=== PATIENT | female | born 1990 | race Caucasian/White ===

== ENCOUNTER 2016-10-23 22:46 | Inpatient (IN) | payer OTHER ==
[~2016-10-23] VITALS: Ht 167.6 cm; Wt 65.9 kg
[~2016-10-23 22:46] MED LIST: PREN1TAB49 PO
[2016-10-23 22:54] VITALS: Ht 167.6 cm; Wt 65.9 kg
[2016-10-23 22:55] VITALS: BP 126/78; PULSE 98; RESP 18
[2016-10-23 23:57] LABS: ADD UMIC NO; UR ASCORBIC ACID NEGATIVE (NEGATIVE); UR BILIRUBIN (Dip) NEGATIVE (NEGATIVE); UR BLOOD (Dip) NEGATIVE (NEGATIVE); UR CLARITY CLEAR (CLEAR); UR COLOR STRAW (YELLOW); UR GLUCOSE (Dip) NEGATIVE (NEGATIVE); UR KETONES (Dip) NEGATIVE (NEGATIVE); UR LEUKOCYTE ESTERASE (Dip) NEGATIVE Leu/ul (NEGATIVE); UR NITRITE (Dip) NEGATIVE (NEGATIVE); UR SPECIFIC GRAVITY (Dip) 1.012 (1.003-1.030); UR TOTAL PROTEIN (Dip) NEGATIVE (NEGATIVE); UR UROBILINOGEN (Dip) NEGATIVE (NEGATIVE)
[2016-10-24] MEDS ORDERED: LACTATED RINGER'S 1,000 ML IV ONE (00:30)
[2016-10-24] MEDS ORDERED: LACTATED RINGER'S 1,000 ML IV SCH (01:19)
[2016-10-24] MEDS ORDERED: CEFAZOLIN 2 GM/50 ML (PMX) 50 ML IV SCH (01:30)
[2016-10-24] MEDS ORDERED: OXYTOCIN 30 UNITS/LR 500 ML IV PRN ×2 (01:30→08:00)
[2016-10-24] MEDS ORDERED: OXYTOCIN 30 UNITS/LR 500 ML IV SCH (01:30)
[2016-10-24] MEDS ORDERED: CARBOPROST 250 MCG INJ IM PRN ×2 (01:30→08:00)
[2016-10-24] MEDS ORDERED: MISOPROSTOL 200 MCG TAB PR PRN ×2 (01:30→08:00)
[2016-10-24] MEDS ORDERED: METHYLERGONOVINE 0.2 MG INJ IM PRN ×2 (01:30→08:00)
[2016-10-24 01:44] LABS: BASOPHIL # 0.1 10^3/ul (0.0-0.1); BASOPHILS % 0.7 % (0.0-2.0); EOSINOPHILS # 0.2 10^3/ul (0.0-0.5); EOSINOPHILS % 2.5 % (0.0-7.0); HEMATOCRIT 28.5 % (37.0-47.0); HEMOGLOBIN 8.9 g/dl (12.0-16.0); LYMPHOCYTES # 2.4 10^3/ul (0.8-2.9); LYMPHOCYTES % 31.2 % (15.0-51.0); MEAN CORPUSCULAR HEMOGLOBIN 23.5 pg (29.0-33.0); MEAN CORPUSCULAR HGB CONC 31.2 g/dl (32.0-37.0); MEAN CORPUSCULAR VOLUME 75.2 fl (82.0-101.0); MEAN PLATELET VOLUME 11.4 fl (7.4-10.4); MONOCYTE # 0.7 10^3/ul (0.3-0.9); MONOCYTES % 8.9 % (0.0-11.0); NEUTROPHILS % 56.3 % (39.0-77.0); NUCLEATED RED BLOOD CELLS% 0.4 /100WBC (0.0-0.0); PLATELET COUNT 283 10^3/UL (140-415); RED BLOOD COUNT 3.79 10^6/ul (4.20-5.40); RED CELL DISTRIBUTION WIDTH 15.2 % (11.5-14.5); WHITE BLOOD COUNT 7.6 10^3/ul (4.8-10.8)
[2016-10-24 02:05] LABS: INR 0.83; PROTIME 11.4 Sec (12.2-14.2); PT RATIO 0.9
[2016-10-24 02:48] LABS: CANNABINOIDS Negative (NEGATIVE)
[2016-10-24 02:51] LABS: BARBITURATES Negative (NEGATIVE); BENZODIAZEPINES Negative (NEGATIVE); COCAINE Negative (NEGATIVE); OPIATES Negative (NEGATIVE)
--- NOTE | 2016-10-24 03:08 | TRIAGE ---
OB Triage Datetime Report Generated by CPN: 10/24/2016 03:08 Datetime: 10/24/2016 02:51 Comments: Maternal HR confirmed with pulse oximeter. Datetime: 10/24/2016 02:00 Labor Evaluation Frequency: 4-8; irregular Monitor Mode: External Duration (sec)2399: 60-120 Quality: Moderate Pattern: Normal: <= 5 Contractions in 10 Minutes Resting Tone [place]: Relaxed Heart Rate FHR Baseline Rate: 135 Monitor Mode: External US FHR Baseline Changes: No Baseline Change Variability: Moderate 6-25 bpm Accelerations: 15X15 Decelerations: None Category: Category I Comments: Periods of loss of FHR contact d/t pt self repositioning. Datetime: 10/24/2016 01:50 Assessment Type: Admission Assessment Maternal Assessment Level of Consciousness: Fully Conscious DTR's/Clonus: DTRs 2+; No Clonus Headache: Denies Blurred Vision: No Respiratory Effort: Unlabored; Regular Rhythm; Equal Expansion Breath Sounds, Left: Clear and Equal Breath Sounds, Right: Clear and Equal Nausea/Vomiting: Denies RUQ Epigastric Pain: Denies Facial Edema: None Fall Risk Assessment History of Falling: (0) No Secondary Diagnosis: (0) No Ambulatory Aid: (0) Bedrest/Nurse Assist Gait: (0) Normal/Bedrest/Immobile Mental Status: (0) Oriented to Own Ability Datetime: 10/24/2016 01:45 Stage of : Labor Datetime: 10/24/2016 01:05 Time of Arrival: 10/24/2016 01:45 EGA: 38.5 Arrived By: Wheelchair Arrived From: OB TRIAGE Datetime: 10/24/2016 01:00 Labor Evaluation Frequency: 3-9 Monitor Mode: External Duration (sec)2399: 60-160 Quality: Moderate Pattern: Normal: <= 5 Contractions in 10 Minutes Resting Tone [place]: Relaxed Heart Rate FHR Baseline Rate: 135 Monitor Mode: External US FHR Baseline Changes: No Baseline Change Variability: Moderate 6-25 bpm Accelerations: 15X15 Decelerations: None Category: Category I Comments: Periods of loss of FHR contact d/t pt self repositioning Datetime: 10/24/2016 00:00 Labor Evaluation Frequency: 4-7 Monitor Mode: External Duration (sec)2399: 120-160 Quality: Moderate Pattern: Normal: <= 5 Contractions in 10 Minutes Resting Tone [place]: Relaxed Heart Rate FHR Baseline Rate: 135 Monitor Mode: External US FHR Baseline Changes: No Baseline Change Variability: Moderate 6-25 bpm Accelerations: 15X15 Decelerations: None Category: Category I Comments: Periods of loss of FHR contact d/t pt self repositioning Datetime: 10/23/2016 23:20 Labor Evaluation Frequency: x3 Monitor Mode: External Duration (sec)2399: 90-160 Quality: Moderate Resting Tone [place]: Relaxed Heart Rate FHR Baseline Rate: 135 Monitor Mode: External US FHR Baseline Changes: No Baseline Change Variability: Moderate 6-25 bpm Accelerations: 15X15 Decelerations: None Category: Category I Datetime: 10/23/2016 23:15 Vaginal Exam Dilatation (cms): 0.0 Effacement (%): 0 Station: -4 Exam By: MG Membrane Status: Intact Datetime: 10/23/2016 23:02 Assessment Type: Triage Maternal Assessment Level of Consciousness: Fully Conscious DTR's/Clonus: DTRs 2+; No Clonus Headache: Denies Blurred Vision: No Respiratory Effort: Unlabored; Regular Rhythm; Equal Expansion Breath Sounds, Left: Clear and Equal Breath Sounds, Right: Clear and Equal Nausea/Vomiting: Denies RUQ Epigastric Pain: Denies Lower Extremities Edema: Bilateral Lower Extremities Degree: 1+ Upper Extremities Edema: None Degree: None Facial Edema: None Fall Risk Assessment History of Falling: (0) No Secondary Diagnosis: (0) No Ambulatory Aid: (0) Bedrest/Nurse Assist IV Therapy: (0) No Gait: (0) Normal/Bedrest/Immobile Mental Status: (0) Oriented to Own Ability Fall Score: 0 Fall Risk Score Definition: No Risk: No action required Datetime: 10/23/2016 23:01 EGA: 38.4 Datetime: 10/23/2016 22:49 Resting Tone [place]: Relaxed Datetime: 10/23/2016 22:34 Time of Arrival: 10/23/2016 22:34 Arrived By: Ambulatory Arrived From: Emergency Dept Chief Complaint: UCs for 3 days, some mucous discharge Movement: Present Contractions: Regular Time Contractions Began: 10/20/2016 15:00 Contractions: [id number] Rupture of Membranes: Denies Vaginal Bleeding: None Vaginal Discharge: Present Recent Sexual Intercouse: Denies Abdominal Trauma: Not Applicable Patient Complaints: Contractions Additional Patient Complaints: Pt denies medical hx. Reports formerly homeless but not currently. Pt reports positive gonorrhea that was untreated; inconsistent care; current smoker and for sony marijuana use in early . NPO since 10/23 @ 2200 Time Provider Notified: 10/23/2016 23:03 Provider Notified: LABORIST MD LINDOADIAN Initial Plan: Observation, UA, VE, PO hydration x1 followed by NPO status
[2016-10-24] MEDS ORDERED: OXYTOCIN 10 UNIT INJ ONE (06:03)
[2016-10-24] MEDS ORDERED: FENTAnyl 50 MCG/ML VIAL ONE (06:03)
[2016-10-24] MEDS ORDERED: morphine SULFATE/PF (10 MG/10 ML) INJ ONE (06:03)
[2016-10-24] MEDS ORDERED: PHENYLephrine (100 MCG/ML) 5ML SYG ONE (06:03)
[2016-10-24] MEDS ORDERED: METOCLOPRAMIDE 10 MG INJ ONE (06:03)
--- NOTE | 2016-10-24 06:17 | HP ---
Date/Time of Note Date/Time of Note DATE: 10/24/16 TIME: 06:08 OB - History Hx of Present Free Text/Dictation 26 Year-old with SIUP at 38 5/7 weeks with two previous delivery presents with a chief complaint of ucs. She has been receiving limited care with an [facility] . She states good movement. She denies nausea, vomiting, shortness of breath, chest pain, headache, visual changes, vaginal bleeding or LOF. Chief Complaint: ucs Estimated Due Date: Nov 02, 2016 : 6 Para: 2 Spontaneous : 3 Therapeutic : 0 Care: Limited Care Ultrasounds: Normal mid trimester US Obstetrical Complications: Other (limited PNC, previous c/s x2, h/o marijuana use ) Medical Complications: None Past Family/Social History * Past Medical, Surgical, Family and Obstetric Histories reviewed from chart. Blood Type: O+ RPR/VDRL: Negative HBsAG: Negative OB Admission Exam Vital Signs Vital Signs Vital Signs Date Time Temp Pulse Resp B/P Pulse Ox O2 Delivery O2 Flow Rate FiO2 10/23/16 22:55 97.9 98 18 126/78 98 Room Air Physical Exam HEENT: WNL Heart: Rhythm Normal Lungs: Clear Abdomen: WNL Extremities: Normal Cervical Dilatation: None Effacement: 25% Station: -3 Membranes: Intact Heart Rate: 140's Accelerations: Accelerations Present Decelerations: No Decelerations Varibility: Moderate Contractions on Admission: < 5 Minutes Apart Intensity: Moderate Last 72 hours Lab Results CBC & BMP 10/24/16 00:55 OB Assessment/Plan Other plan: 26 Year-old with SIUP at 38 5/7 weeks with two previous delivery in early labor - FHR: No sign of metabolic acidosis- Category I - Continious EFM, toco - CBC, blood type and screen, Hbs ag, RPR, HIV, UDS - Analgesia options with R/B/A discussed in detail with patient - Obtain PN labs and medical record - Please see the orders The risk of delivery including but not limited to bleeding, infection, injury to other organs (bowel, bladder, ureter, vessels, and nerves), injury to fetus, blood transfusion, blood transfusion related infection, risk of anesthesia, adhesion, needs for future , removal of uterus or any other indicated surgery was discussed with the patient and her family. She expressed understanding. All of her questions were answered. She signed the informed consent PHYSICIAN'S VERIFICATION OF INFORMED CONSENT-NVD The patient was counseled regarding the procedure, its indications, risks, potential complications and alternatives and any questions were answered. Consent was obtained. PLANNED PROCEDURE/TREATMENT: delivery with possible vacuum/forceps delivery PHYSICIAN'S VERIFICATION OF INFORMED CONSENT FOR BLOOD TRANSFUSION There is a reasonable possibility that blood transfusion will be necessary as a result of the patient's procedure. I have discussed the following with the patient/patient's legal circulation sales representative: An explanation of the benefits and risks of the transfusion of blood or blood products and the possible alternatives. Al questions have been answered to the patient's/patients legal representatives satisfaction. INFORMED CONSENT: The patient has been informed of: - The nature of the proposed care, treatment, services, medications, interventions or procedures. - Potential benefits, risks or side effects, including potential problems related to recuperation. - The likelihood of achieving care treatment and service goals. - Reasonable alternatives to the proposed care, treatment and service. - The relevant risks, benefits and side effects related to alternatives, including the possible results of not receiving care, treatment and services. - When indicated, any limitations on the confidentiality of information learned from or about the patient. - If appropriate, the risks, benefits and alternatives of the drugs to be used for sedation/analgesia including moderate sedation. - If appropriate, patient has been provided information on the risks, benefits and alternatives to the transfusion of blood and/or blood products. - If appropriate, patient has been provided information regarding the [place] Blood Act. HAI DUNCAN Oct 24, 2016 06:16
[2016-10-24] MEDS ORDERED: DEXAMETHASONE 4 MG/ML 1 ML INJ ONE (06:24)
[2016-10-24] MEDS ORDERED: LABETALOL HCL 20MG INJ IV PRN (07:00)
[2016-10-24] MEDS ORDERED: EPHEDrine SULFATE 50 MG/5 ML SYG ONE (07:00)
[2016-10-24] MEDS ORDERED: ONDANSETRON 4 MG INJ IV PRN ×2 (07:00)
[2016-10-24] MEDS ORDERED: FENTAnyl 50 MCG/ML VIAL IV PRN ×3 (07:00)
[2016-10-24] MEDS ORDERED: OXYCODONE/ACETAMINOPHEN (5/325) TAB PO PRN ×2 (07:00)
[2016-10-24] MEDS ORDERED: FENTAnyl 2MCG/ML-ROPIV 0.2% 100 ML BAG EPI SCH (07:00)
[2016-10-24] MEDS ORDERED: DIPHENHYDRAMINE 50 MG INJ IV PRN ×2 (07:00)
[2016-10-24] MEDS ORDERED: EPHEDrine SULFATE 50 MG/5 ML SYG IV PRN (07:00)
[2016-10-24] MEDS ORDERED: morphine 2 MG INJ IV PRN (07:00)
[2016-10-24] MEDS ORDERED: NALBUPHINE HCL (10 MG/1 ML) INJ IV PRN (07:00)
[2016-10-24] MEDS ORDERED: TRIMETHOBENZAMIDE 100 MG/ML VIAL IM PRN (07:00)
[2016-10-24] MEDS ORDERED: hydrALAzine 20 MG INJ IV PRN (07:00)
[2016-10-24] MEDS ORDERED: HYDROmorphONE (0.2 MG/ML) 10ML SYG IV PRN ×3 (07:00)
[2016-10-24] MEDS ORDERED: MEPERIDINE 25 MG INJ IV PRN (07:00)
[2016-10-24] MEDS ORDERED: IPRATROPIUM (NEB) 0.5 MG/2.5 ML AMP HHN PRN (07:00)
[2016-10-24] MEDS ORDERED: morphine 4 MG/ML VIAL IV PRN (07:00)
[2016-10-24] MEDS ORDERED: ALBUTEROL 0.083% (NEB) 2.5 MG/3 ML AMP HHN PRN (07:00)
[2016-10-24] MEDS ORDERED: NALOXONE (0.4 MG/ML) INJ IV PRN (07:00)
[2016-10-24] MEDS: DEXTROSE 5%-LR 1,000 ML IV SCH ×2 (07:46→21:52)
--- NOTE | 2016-10-24 07:46 | OPR ---
Operative Report Planned Procedure Free Text/Dictation 26 y/o with previous deliveryx2, limited PNC at 38 5/7 wks in early labor Procedure date Oct 24, 2016 Procedure(s) Repeat C/S Performed by: HAI DUNCAN Assisting provider: RAE AGUILA MD Anesthesiologist: Cristino Hurley M.D. Pre-procedure diagnosis 26 y/o with previous deliveryx2, limited PNC at 38 5/7 wks in early labor Anesthesia Type: spinal Procedure Description Under satisfactory spinal anesthesia, the patient was prepped and draped and placed in a supine position, tilted to the left. Pfannenstiel incision was made , carried through the subcutaneous tissue. Bleeders brought under control with electrocautery. Fascia incised to the length of the incision. Rectus muscles from the fascia, divided midline. Peritoneum exposed, entered through a transverse incision. Exploration of abdomen revealed gravid uterus. Bladder flap was developed. Transverse incision was made in the lower segment of the uterus. Amniotic sac ruptured. Thin meconium amniotic fluid noted. Nasal oropharyngeal suction was performed. The baby was handed to the team for immediate attention. The placenta was delivered manually intact. Uterine cavity was cleaned with wet sponge and drainage established. Uterus closed inside in 2 layers using 0-vicryl in continuous fashion. Peritoneal cavity irrigated with warm saline. Sponge, needle and instrument count reported to be correct. Abdominal peritoneum closed with 3/0 vicryl continuously. Rectus muscle approximated with 3-0 vicryl. Fascia closed with 0-vicryl, Subcutaneous closed with 3-0 vicryl. Skin closed with 4-0 monocryl. Estimated blood loss [600 ]mL. Urine bag contained [100]mL of urine which was clear Post-Procedure Post-procedure diagnosis 26 y/o with previous deliveryx2, limited PNC at 38 5/7 wks in early labor Findings: Live female baby, Apgars [9] and [9], weight [8 lbs 9 oz, cephalic presentation [3 v]cord. Specimen removed: No Complications: None Pt Condition post procedure: stable Disposition: PACU Physician Certification I, the undersigned physician, hereby certify that I have discussed the procedure described in this consent form with this patient (or the patient's legal litigation claim representative), including: * The risk and benefits of the procedure; * Any adverse reactions that may reasonably be expected to occur; * Any alternative efficacious methods of treatment which may be medically viable ; * The potential problems that may occur during recuperation; * Potential for blood transfusion and associated risks/benefits; and * Any research or economic interest I may have regarding this treatment. I further certify that the patient/legally responsible person was encouraged to ask question and that all questions were answered. HAI DUNCAN Oct 24, 2016 07:46
[2016-10-24] MEDS ORDERED: METHYLERGONOVINE 0.2 MG TAB PO PRN (08:00)
[2016-10-24] MEDS ORDERED: LANOLIN 7 GM TUBE TOP PRN (08:00)
[2016-10-24] MEDS: OXYCODONE/ACETAMINOPHEN (5/325) TAB PO SCH ×2 (08:00→23:45)
[2016-10-24] MEDS: KETOROLAC 30 MG INJ IV PRN ×3 (08:43→23:44)
[2016-10-24] MEDS: SENNA/DOCUSATE NA (8.6MG/50MG) TAB PO SCH ×2 (09:00→21:28)
[2016-10-24 10:15] VITALS: BP 107/62; PULSE 66; RESP 16
[2016-10-24 12:00] VITALS: BP 111/60; PULSE 77; RESP 17
[2016-10-24] MEDS: OXYTOCIN 30 UNITS/LR 500 ML IV SCH ×2 (13:21→17:32)
[2016-10-24] MEDS: IBUPROFEN 800 MG TAB PO SCH ×2 (14:00→22:00)
[2016-10-24 16:00] VITALS: BP 105/54; PULSE 70; RESP 17
[2016-10-24 19:50] VITALS: BP 112/62; PULSE 64; RESP 18
[2016-10-25] MEDS: OXYCODONE/ACETAMINOPHEN (5/325) TAB PO SCH
[2016-10-25 04:15] VITALS: BP 108/69; PULSE 76; RESP 18
[2016-10-25] MEDS: KETOROLAC 30 MG INJ IV PRN (05:36)
[2016-10-25] MEDS: IBUPROFEN 800 MG TAB PO SCH ×3 (06:00→22:15)
[2016-10-25 07:56] LABS: BASOPHILS % 0.3 % (0.0-2.0); EOSINOPHILS # 0.1 10^3/ul (0.0-0.5); EOSINOPHILS % 0.9 % (0.0-7.0); HEMATOCRIT 27.6 % (37.0-47.0); HEMOGLOBIN 8.7 g/dl (12.0-16.0); LYMPHOCYTES # 2.6 10^3/ul (0.8-2.9); MEAN CORPUSCULAR HGB CONC 31.5 g/dl (32.0-37.0); MONOCYTE # 0.7 10^3/ul (0.3-0.9); MONOCYTES % 7.8 % (0.0-11.0); NEUTROPHILS % 60.7 % (39.0-77.0); PLATELET COUNT 250 10^3/UL (140-415); RED BLOOD COUNT 3.63 10^6/ul (4.20-5.40); RED CELL DISTRIBUTION WIDTH 15.5 % (11.5-14.5); WHITE BLOOD COUNT 8.8 10^3/ul (4.8-10.8)
[2016-10-25 08:20] VITALS: BP 102/54; PULSE 68; RESP 16
[2016-10-25] MEDS: SENNA/DOCUSATE NA (8.6MG/50MG) TAB PO SCH ×2 (09:14→20:42)
--- NOTE | 2016-10-25 12:01 | PN ---
Date/Time of Note Date/Time of Note DATE: 10/25/16 TIME: 11:56 OB Subjective Subjective Subjective Vaginal bleeding in the amount of menses. Denies any dizziness, lightheadedness or any other complaint. Pain well controlled with p.o. pain medication. Tolerated regular diet. OB Objective Objective Objective GA: A&O, NAD Abdomen: Soft, appropriate tenderness in the incision. incision: Clean, small amount of oozing from the edge of the incision noted. No active bleeding. Pressure dressing reapplied no evidence of infection. Bruising or hematoma Extremities: No calf tenderness, no cl CV: RRR ick no edema Normal bowel sounds audible CV: RRR Lungs: CTA Bilaterally. Hematology - 72 Hrs Test 10/24/16 00:55 10/25/16 06:56 White Blood Count 7.610^3/ul (4.8-10.8) 8.810^3/ul (4.8-10.8) Red Blood Count 3.7910^6/ul (4.20-5.40) L 3.6310^6/ul (4.20-5.40) L Hemoglobin 8.9g/dl (12.0-16.0) L 8.7g/dl (12.0-16.0) L Hematocrit 28.5% (37.0-47.0) L 27.6% (37.0-47.0) L Mean Corpuscular Volume 75.2fl (82.0-101.0) L 76.0fl (82.0-101.0) L Mean Corpuscular Hemoglobin 23.5pg (29.0-33.0) L 24.0pg (29.0-33.0) L Mean Corpuscular Hemoglobin Concent 31.2g/dl (32.0-37.0) L 31.5g/dl (32.0-37.0) L Red Cell Distribution Width 15.2% (11.5-14.5) H 15.5% (11.5-14.5) H Platelet Count 34668^3/UL (140-415) 88028^3/UL (140-415) Mean Platelet Volume 11.4fl (7.4-10.4) H 11.0fl (7.4-10.4) H Neutrophils % 56.3% (39.0-77.0) 60.7% (39.0-77.0) Lymphocytes % 31.2% (15.0-51.0) 30.0% (15.0-51.0) Monocytes % 8.9% (0.0-11.0) 7.8% (0.0-11.0) Eosinophils % 2.5% (0.0-7.0) 0.9% (0.0-7.0) Basophils % 0.7% (0.0-2.0) 0.3% (0.0-2.0) Nucleated Red Blood Cells % 0.4/100WBC (0.0-0.0) H 0.0/100WBC (0.0-0.0) Neutrophils # (Manual) 410^3/ul (1.7-7.5) 510^3/ul (1.7-7.5) Lymphocytes # 2.410^3/ul (0.8-2.9) 2.610^3/ul (0.8-2.9) Monocytes # 0.710^3/ul (0.3-0.9) 0.710^3/ul (0.3-0.9) Eosinophils # 0.210^3/ul (0.0-0.5) 0.110^3/ul (0.0-0.5) Basophils # 0.110^3/ul (0.0-0.1) 0.010^3/ul (0.0-0.1) Nucleated Red Blood Cells # 0.010^3/ul (0.0-0.0) 0.010^3/ul (0.0-0.0) OB Assessment/Plan Other Assessment: POD #1 Doing well Anemia, postop. Asymptomatic Other plan: Routine postop care Continue ambulation Iron when tolerates p.o. well with LULY Thompson MD Oct 25, 2016 12:00
[2016-10-25 12:31] LABS: RUBELLA ANTIBODY - IGG <0.90 index
[2016-10-25 16:00] VITALS: BP 118/70; PULSE 66; RESP 18
[2016-10-25] MEDS: OXYCODONE/ACETAMINOPHEN (5/325) TAB PO PRN ×2 (16:43→20:42)
[2016-10-25 20:15] VITALS: BP 126/64; PULSE 80; RESP 18
[2016-10-26] MEDS: OXYCODONE/ACETAMINOPHEN (5/325) TAB PO PRN ×2 (03:58→12:34)
[2016-10-26 04:00] VITALS: BP 105/63; PULSE 66; RESP 18
[2016-10-26] MEDS: IBUPROFEN 800 MG TAB PO SCH ×3 (05:31→21:38)
[2016-10-26 08:00] VITALS: BP 107/69; PULSE 66; RESP 18
[2016-10-26] MEDS: SENNA/DOCUSATE NA (8.6MG/50MG) TAB PO SCH ×2 (09:00→21:38)
--- NOTE | 2016-10-26 11:46 | PN ---
Date/Time of Note Date/Time of Note DATE: 10/26/16 TIME: 11:45 OB Subjective Subjective Subjective Post C section day 2 Doing Well Afebrile Ambulatory Chest Clear Breasts are soft , Nipples are intact Abdomen is soft Fundus is firm Moderate amount of lochia Incision is clean ,No evidence of infection No calf tenderness No ankle edema Current Medications Medications (Trade) Dose Ordered Sig/Kailee Route PRN Reason Start Time Stop Time Status Last Admin Dose Admin Lactated Ringer's 1,000 ml @ 1,000 mls/hr Q1H ONCE IV 10/24/16 00:30 10/24/16 01:29 DC 10/24/16 00:55 Lactated Ringer's 1,000 ml @ 125 mls/hr Q8H IV 10/24/16 01:19 10/24/16 10:29 DC 10/24/16 02:43 Cefazolin Sodium/ Dextrose 50 ml @ 100 mls/hr ONCE IV 10/24/16 01:30 10/24/16 10:29 DC Oxytocin/Lactated Ringer's 500 ml @ 125 mls/hr ONCE IV 10/24/16 01:30 10/24/16 10:29 DC 10/24/16 08:23 Oxytocin/Lactated Ringer's 500 ml @ 0 mls/hr ONCE PRN IV For Hemorrhage Management 10/24/16 01:30 10/24/16 10:30 DC Methylergonovine Maleate (Methergine) 0.2 mg ONCE PRN IM VAGINAL BLEEDING 10/24/16 01:30 10/24/16 10:30 DC Carboprost Tromethamine (Hemabate) 250 mcg ONCE PRN IM VAGINAL BLEEDING 10/24/16 01:30 10/24/16 10:30 DC Misoprostol (Cytotec) 1,000 mcg ONCE PRN ME VAGINAL BLEEDING 10/24/16 01:30 10/24/16 10:30 DC Morphine Sulfate (Duramorph) 10 mg STK-MED ONCE .ROUTE 10/24/16 06:03 10/24/16 06:04 DC Fentanyl (Sublimaze) 100 mcg STK-MED ONCE .ROUTE 10/24/16 06:03 10/24/16 06:04 DC Phenylephrine HCl (Aleks-Synephrine Inj Syg) 500 mcg STK-MED ONCE .ROUTE 10/24/16 06:03 10/24/16 06:04 DC Metoclopramide HCl (Reglan) 10 mg STK-MED ONCE .ROUTE 10/24/16 06:03 10/24/16 06:04 DC Oxytocin (Oxytocin) 10 units STK-MED ONCE .ROUTE 10/24/16 06:03 10/24/16 06:04 DC Dexamethasone (Decadron) 4 mg STK-MED ONCE .ROUTE 10/24/16 06:24 10/24/16 06:25 DC Hydromorphone HCl (Dilaudid (Rec)) 0.2 mg PACU ORDER PRN IV MILD PAIN LEVEL 1-3 10/24/16 07:00 10/24/16 10:30 DC Hydromorphone HCl (Dilaudid (Rec)) 0.4 mg PACU ORDER PRN IV MODERATE PAIN LEVEL 4-6 10/24/16 07:00 10/24/16 10:30 DC Hydromorphone HCl (Dilaudid (Rec)) 0.6 mg PACU ORDER PRN IV SEVERE PAIN LEVEL 7-10 10/24/16 07:00 10/24/16 10:30 DC Fentanyl (Sublimaze) 25 mcg PACU ORDER PRN IV MILD PAIN LEVEL 1-3 10/24/16 07:00 10/24/16 10:30 DC Fentanyl (Sublimaze) 50 mcg PACU ODER PRN IV MODERATE PAIN LEVEL 4-6 10/24/16 07:00 10/24/16 10:30 DC 10/24/16 09:37 Fentanyl (Sublimaze) 75 mcg PACU ORDER PRN IV SEVERE PAIN LEVEL 7-10 10/24/16 07:00 10/24/16 10:30 DC Oxycodone/ Acetaminophen (Percocet (5/ 325)) 1 tab PACU ORDER PRN PO PAIN LEVEL 1-5 10/24/16 07:00 10/24/16 10:30 DC Oxycodone/ Acetaminophen (Percocet (5/ 325)) 2 tab PACU ORDER PRN PO PAIN LEVEL 6-10 10/24/16 07:00 10/24/16 12:00 DC Ondansetron HCl (Zofran Inj) 4 mg PACU ORDER PRN IV NAUSEA AND/OR VOMITING 10/24/16 07:00 10/24/16 10:30 DC Trimethobenzamide HCl (Tigan) 200 mg PACU ORDER PRN IM NAUSEA AND/OR VOMITING 10/24/16 07:00 10/24/16 10:30 DC Labetalol HCl (Labetalol) 5 mg PACU ORDER PRN IV HIGH BLOOD PRESSURE 10/24/16 07:00 10/24/16 10:30 DC Hydralazine HCl (Apresoline) 5 mg PACU ORDER PRN IV HIGH BLOOD PRESSURE 10/24/16 07:00 10/24/16 10:30 DC Ephedrine Sulfate 5 mg PACU ORDER PRN IV MAP LESS THAN 60 10/24/16 07:00 10/24/16 10:30 DC Albuterol (Proventil 0.083% (Neb)) 2.5 mg PACU ORDER PRN HHN WHEEZING 10/24/16 07:00 10/24/16 10:30 DC Ipratropium [place] (Atrovent 0.02% (Neb)) 0.5 mg PACU ORDER PRN HHN WHEEZING 10/24/16 07:00 10/24/16 10:30 DC Meperidine HCl (Demerol) 25 mg PACU ORDER PRN IV POST-OP RIGORS 10/24/16 07:00 10/24/16 10:30 DC Diphenhydramine HCl (Benadryl) 25 mg PACU ORDER PRN IV PRURITUS 10/24/16 07:00 10/24/16 10:30 DC Naloxone HCl (Narcan) 0.1 mg Q2M PRN IV FOR RESP RATE 8 OR LESS 10/24/16 07:00 10/25/16 06:59 DC Ketorolac Tromethamine (Toradol) 30 mg Q6H PRN IV PAIN 10/24/16 07:00 10/25/16 06:59 DC 10/25/16 05:36 Morphine Sulfate (morphine) 2 mg Q3H PRN IV PAIN LEVEL 1-5 10/24/16 07:00 10/25/16 06:59 DC Morphine Sulfate (morphine) 4 mg Q3H PRN IV PAIN LEVEL 6-10 10/24/16 07:00 10/25/16 06:59 DC 10/24/16 11:53 Diphenhydramine HCl (Benadryl) 25 mg Q6H PRN IV ITCHING 10/24/16 07:00 10/25/16 06:59 DC Nalbuphine HCl (Nubain) 5 mg ONCE PRN IV ITCHING 10/24/16 07:00 10/25/16 06:59 DC Ondansetron HCl (Zofran Inj) 4 mg Q6H PRN IV NAUSEA AND/OR VOMITING 10/24/16 07:00 10/25/16 06:59 DC Fentanyl/ Ropivacaine 100 ml EPIDURAL INFUSION EPI 10/24/16 07:00 10/24/16 10:30 DC Miscellaneous Information Duramorph: 0.2 mg Spi... GIVEN XX 10/24/16 07:00 10/24/16 10:30 DC Dextrose/Lactated Ringer's 1,000 ml @ 125 mls/hr Q8H IV 10/24/16 07:46 10/25/16 14:20 DC 10/24/16 21:52 Oxytocin/Lactated Ringer's 500 ml @ 125 mls/hr Q4H IV 10/24/16 07:46 10/24/16 15:45 DC 10/24/16 17:32 Methylergonovine Maleate (Methergine) 0.2 mg Q6H PRN PO VAGINAL BLEEDING 10/24/16 08:00 Simethicone (Mylicon) 160 mg Q8H PRN PO DISTENSION/GAS/BLOATING 10/24/16 08:00 Senna/Docusate Sodium (Senokot-S) 1 tab BID PO 10/24/16 09:00 10/25/16 20:42 Lanolin (Qvt-I-Zeyigh) 1 applic BEDSIDE MEDICATION PRN TOP BEDSIDE FOR RENITA TO NIPPLES 10/24/16 08:00 Diphtheria/ Tetanus/Acell Pertussis (Adacel) 0.5 ml ONCE ONCE IM* 10/27/16 09:00 10/27/16 09:01 Measles/Mumps/ Rubella Vaccine Live 0.5 ml 0.5 ml ONCE ONCE SC* 10/27/16 09:00 10/27/16 09:01 Oxytocin/Lactated Ringer's 500 ml @ 0 mls/hr ONCE PRN IV For Hemorrhage Management 10/24/16 08:00 Methylergonovine Maleate (Methergine) 0.2 mg ONCE PRN IM VAGINAL BLEEDING 10/24/16 08:00 Carboprost Tromethamine (Hemabate) 250 mcg ONCE PRN IM VAGINAL BLEEDING 10/24/16 08:00 Misoprostol (Cytotec) 1,000 mcg ONCE PRN ME VAGINAL BLEEDING 10/24/16 08:00 Ibuprofen (Motrin) 800 mg Q8 PO 10/24/16 14:00 10/26/16 05:31 Oxycodone/ Acetaminophen (Percocet (5/ 325)) 1 tab Q8H PO 10/24/16 08:00 10/25/16 14:20 DC Oxycodone/ Acetaminophen (Percocet (5/ 325)) 1 tab Q4H PRN PO PAIN 10/24/16 08:00 10/26/16 03:58 Ephedrine Sulfate 50 mg STK-MED ONCE .ROUTE 10/24/16 07:00 10/25/16 22:32 DC New born is doing well, Breast feeding JANA RIVERA MD Oct 26, 2016 11:46
[2016-10-26 16:00] VITALS: BP 117/67; PULSE 81; RESP 18
[2016-10-26 19:40] VITALS: BP 119/79; PULSE 84; RESP 19
[2016-10-27 03:50] VITALS: BP_SYST 60; PULSE 68; RESP 19
[2016-10-27] MEDS: IBUPROFEN 800 MG TAB PO SCH ×2 (05:37→13:23)
[2016-10-27 08:17] VITALS: BP 118/86; PULSE 79; RESP 17
--- NOTE | 2016-10-27 08:21 | PN ---
Date/Time of Note Date/Time of Note DATE: 10/27/16 TIME: 08:19 OB Subjective Subjective Subjective Patient without complaints. Ready to go home. OB Objective Objective Objective Gen: NAD Abd: I-C/D/I OB Assessment/Plan Other Assessment: POD3 s/p repeat Other plan: Discharge home. Rx for pain meds. Pelvic rest, no heavy lifting. F/u with clinic. SAMARIA YOST Oct 27, 2016 08:21
[2016-10-27] MEDS ORDERED: DIPHTH/TET/ACEL PERTUSS (ADULT) 0.5 ML VIAL IM* ONE (09:00)
[2016-10-27] MEDS ORDERED: MEASLES,MUMPS,RUBELLA VACCINE INJ SC* ONE (09:00)
[2016-10-27] MEDS: SENNA/DOCUSATE NA (8.6MG/50MG) TAB PO SCH (09:30)
[2016-10-27 16:00] VITALS: BP 134/86; PULSE 102; RESP 18
--- NOTE | 2016-10-27 17:19 | DS ---
Date/Time of Note Date/Time of Note DATE: 10/27/16 TIME: 17:17 Obstetrical Discharge Record Final Diagnosis Final Diagnosis: Term delivered Section Section: Repeat Complications Other Condition on Discharge Physical Assessment Voiding: Yes Breast: Soft, non-tender Fundus: Firm Abdomen and Incision: I-C/D/I Calf Tenderness: No Patient Condition: Good SAMARIA YOST Oct 27, 2016 17:19
== END 2016-10-27 18:14 | disposition home or self-care (01) | DRG 766 ==
LOC: OBT 22:46 → L-D 22:48 → OBT 10-24 01:05 → L-D 10-24 05:59 → PP1 10-24 10:16
PROVIDERS: ADMIT Obstetrics & Gynecology; ATTEND Obstetrics & Gynecology
PROC: 3E033VJ Introduction of Other Hormone into Peripheral Vein, Percutaneous Approach (ICD-10-PCS; 2016-10-24)
PROC: 10D00Z1 Extraction of Products of Conception, Low, Open Approach (ICD-10-PCS; principal; 2016-10-24 06:00)
DX: O34.211 Maternal care for low transverse scar from previous cesarean delivery (principal); Z37.0 Single live birth; Z3A.38 38 weeks gestation of pregnancy
CPT/HCPCS: 36415; 36430; 80307; 81003; 85025; 85610; 85730; 86592; 86703; 86762; 86850; 86900; 86901; 86920; 87340; 87591; 90715; 99464; G0463; J0690; J1100; J1885; J2270; J2274; J2370; J2590; J2765; J3010; J7120; J7121; P9016